=== PATIENT | female | born 2005 | race Two or more races ===

== ENCOUNTER 2023-08-05 22:39 | Emergency (ER) | payer OTHER, SELFPAY ==
[2023-08-05 23:03] VITALS: BP 132/85; PULSE 85; RESP 16; TEMP 36.6; O2SAT 99; BMI 31.2
[2023-08-06 00:18] VITALS: BP 130/87; PULSE 77; RESP 18; O2SAT 99
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
--- NOTE | 2023-08-06 01:09 | ED.NURSE ---
School note provided.
[2023-08-06 01:10] VITALS: BP 130/87; PULSE 77; RESP 18; TEMP 36.6
--- OUTSIDE RECORDS SUMMARY | 2023-08-06 01:11 | XMS_ITS | Continuity of Care Document ---
Author Name Unknown Organization [facility] Address [address] [place] [id number] Phone Care Team Providers Care Analytics Architect Name Role Phone [facility], Nurse Unavailable Unavailable Procedures Procedure Date FLU VACC PANDEMIC Advance Directives Directive Yes / No Effective Date File Name Resuscitation Not Answered N/A N/A Life Support Not Answered N/A N/A Intubation Not Answered N/A N/A Antibiotics Not Answered N/A N/A IV Fluid Support Not Answered N/A N/A Tube Feed Not Answered N/A N/A Other Directive N/A N/A WARNING:The information contained in this section is historical and is provided for information only and does not constitute a legal document or any assurance that the information is still accurate. Please verify the information with the gonzalez of the legal document before using it for clinical purposes. Encounters Encounter Description Practice Location Reason(s) For Visit Diagnoses Date Provider Providers Copied on Encounter [facility] /[facility], [address] [place] [address], [id number], [place] tel:[phone] [facility] No Information [facility] Nurse. [address] [place] [address], [id number], [place]. tel:[phone] Family History Family Member Type Diagnosis Age At Onset No Information Immunizations Vaccine Date Status Comments Influenza (H1N1) virus vaccine, pandemic formulation administered Source: Ne w Immunization Record Payers Payer name Insurance type Covered constitution party ID Authoriza tion(s) No Information Social History Type Description Quantity Date Captured Comments Alcohol Use Details Unknown Caffeine Use Details Unknown Tobacco Use Status No Information Smoking Status No Information Sex Female Chief Complaint And Reason For Visit No Information History Of Present Illness Encounter Date Complaint History Of Prese nt Illness No Information Instructions Date Instruction Additional Infor mation No Information Assessments Type Assessment Date No Information Patient Care Teams Name Effective Dates (start - stop) Status Members No Information
--- OUTSIDE RECORDS SUMMARY | 2023-08-06 01:11 | XMS_ITS | Continuity of Care Document ---
Author Name Unknown Organization [facility] Address [address] [place] [id number] Phone Care Team Providers Care Marketing Communications Coordinator Name Role Phone [facility], Nurse Unavailable Unavailable Procedures Procedure Date FLU [...] Diagnoses Date Provider Providers Copied on Encounter [facility] /[facility], [address] [place] [address], [id number], [place] tel:[phone] [facility] No Information [facility] Nurse. [address] [place] [address], [id number], [place]. tel:[phone] Family History Family Member Type Diagnosis Age At Onset No Information Immunizations Vaccine Date Status Comments Influenza (H1N1) virus vaccine, pandemic formulation administered Source: Ne w Immunization Record Payers Payer name Insurance type Covered democrat ID Authoriza tion(s) No Information Social History [...]
== END 2023-08-06 01:10 | disposition home or self-care (01) ==
LOC: ED 08-06 01:10
PROVIDERS: Emergency Provider Family Medicine
DX: S09.90XA Unspecified injury of head, initial encounter (principal); K08.89 Other specified disorders of teeth and supporting structures; V19.3XXA Pedal cyclist (driver) (passenger) injured in unspecified nontraffic accident, initial encounter
CPT/HCPCS: 99283

== ENCOUNTER 2025-09-11 14:46 | Outpatient (CLI) | payer SELFPAY ==
--- NOTE | 2025-09-11 15:00 | CRLHL7_ITS ---
For Patients: As a result of the Century Cures Act, medical imaging exams and procedure reports are released immediately into your electronic medical record. You may view this report before your referring provider. If you have questions, please contact your health care provider. Indication: Injury, pain Technique: Noncontrast CT right foot Please note that all CT scans at this facility use dose modulation, iterative reconstruction, and/or weight-based dosing when appropriate to reduce radiation dose to as low as reasonably achievable. Comparison: X-rays 09/05/2025 Findings: Transverse lucency at the base of the 5th metatarsal. This does not extend to the joint space. Remaining osseous structures are normal. Small posterior calcaneal spur noted. No soft tissue mass or joint effusion. Impression: Nondisplaced acute fracture of the 5th metatarsal base. Please note that all CT scans at this facility use dose modulation, iterative reconstruction, and/or weight-based dosing when appropriate to reduce radiation dose to as low as reasonably achievable. Dictated by Adolfo Ontiveros MD @ 09/14/2025 8:30:38 AM (Electronically Signed)
== END 2025-09-11 14:47 | disposition home or self-care (01) ==
LOC: CT 14:50
PROVIDERS: Visit Provider Physician Assistant Surgical
DX: M79.671 Pain in right foot (principal); S92.534A Nondisplaced fracture of distal phalanx of right lesser toe(s), initial encounter for closed fracture; S99.921A Unspecified injury of right foot, initial encounter
CPT/HCPCS: 73700